=== PATIENT | female | born 1975 | race Caucasian/White ===

== ENCOUNTER 2016-10-28 02:30 | Emergency (ER) | payer OTHER ==
[~2016-10-28] VITALS: Ht 162.6 cm; Wt 95.3 kg
[~2016-10-28 02:30] MED LIST: LISI40TA PO; QUET300T5 PO; TIZA4CAP2 PO; WARF4TAB PO
[2016-10-28] MEDS ORDERED: ZOFRAN ODT ONE (02:58)
[2016-10-28] MEDS ORDERED: MORPHINE SULFATE ONE (02:58)
[2016-10-28] MEDS ORDERED: MORPHINE SULFATE IM STA (02:59)
[2016-10-28] MEDS ORDERED: ZOFRAN ODT SL STA (02:59)
--- NOTE | 2016-10-28 03:03 | ER.PDOC ---
General Chief Complaint: Abdomen Pain Stated Complaint: ABD PAIN,N/V/D Time seen by MD: 03:02 Source: patient Exam Limitations: no limitations History of Present Illness Initial Comments Epigastric pain Timing/Duration: 24 hours Severity/Quality: moderate Radiation: no radiation Associated Symptoms: nausea/vomiting Exacerbated by: nothing Relieved By: nothing Allergies: Coded Allergies: Sulfa (Sulfonamide Antibiotics) (Unverified Allergy, Unknown, 09/21/14) acetaminophen (Unverified Allergy, Unknown, 09/21/14) chlorpromazine (Unverified Allergy, Unknown, 09/21/14) dicyclomine (Unverified Allergy, Unknown, 09/21/14) doxycycline (Unverified Allergy, Unknown, 09/21/14) fentanyl (Unverified Allergy, Unknown, 09/21/14) haloperidol (Unverified Allergy, Unknown, 09/21/14) ketorolac (Unverified Allergy, Unknown, 09/21/14) meperidine (Unverified Allergy, Unknown, 09/21/14) nalbuphine (Unverified Allergy, Unknown, 09/21/14) oxycodone (Unverified Allergy, Unknown, 09/21/14) prochlorperazine (Unverified Allergy, Unknown, 09/21/14) sumatriptan (Unverified Allergy, Unknown, 09/21/14) Home Meds Reported Medications Tizanidine Hcl (ZANAFLEX) 4 Mg Capsule, 1 CAP PO HS, #30 CAP 09/27/14 Quetiapine Fumarate (SEROQUEL) 300 Mg Tablet, 1 TAB PO HS, #30 TAB 1 Refill 09/27/14 Warfarin Sodium (COUMADIN) 4 Mg Tablet, 1 TAB PO DAILY, #30 TAB 3 Refills 09/27/14 Lisinopril (LISINOPRIL) 40 Mg Tablet, 1 TAB PO DAILY, #30 TAB 5 Refills 09/27/14 Vital Signs First Vital Signs Date Time Temp Pulse Resp B/P (MAP) Pulse Ox O2 Delivery O2 Flow Rate FiO2 10/28/16 02:41 98.0 78 16 97 Last Vital Signs Date Time Temp Pulse Resp B/P (MAP) Pulse Ox O2 Delivery O2 Flow Rate FiO2 10/28/16 02:44 98.0 10/28/16 02:41 78 16 97 Past Medical History Medical History: hypertension Surgical History: appendectomy, cholecystectomy, hysterectomy, tonsillectomy LMP (females 10-50): hysterectomy Social History Smoking: non-smoker Alcohol Use: none Drug Use: none Constitutional: no symptoms reported Respiratory: no symptoms reported Cardiovascular: no symptoms reported Gastrointestinal: see HPI Genitourinary: no symptoms reported Musculoskeletal: no symptoms reported All Other Systems: Reviewed and Negative Physical Exam General Appearance: No Apparent Distress, WD/WN Neck: Non-Tender, Full Range of Motion, Supple, Normal Inspection Respiratory: chest non-tender, lungs clear, normal breath sounds, no respiratory distress, no accessory muscle use Cardiovascular: Normal Peripheral Pulses, Regular Rate, Rhythm, No Edema, No Gallop, No JVD, No Murmur Gastrointestinal: Normal Bowel Sounds, No Organomegaly, No Pulsatile Mass, Tenderness (epigastric) Back: Normal Inspection, No CVA Tenderness, No Vertebral Tenderness Extremities: Normal Range of Motion, Non-Tender, Normal Inspection, No Pedal Edema, No Calf Tenderness, Normal Capillary Refill, Pelvis Stable Neurologic/Psychiatric: senior ios developer II-XII NML as Tested, No Motor/Sensory Deficits, Alert, Normal Mood/Affect, Oriented x 3 Skin: Normal Color, Warm/Dry EKG/XRAY/CT/US CT Comments: Nothing acute on CT abdomen/pelvis Course Blood Pressure Systolic: 167 Blood Pressure Diastolic: 99 Blood Pressure Mean: 121 Departure Time of Disposition: 04:21 Disposition: 01 HOME, SELF-CARE Impression: Primary Impression: Nonspecific abdominal pain Condition: Stable Referrals: PCP,UNKNOWN (PCP) PRIMARY CARE PROVIDER Additional Instructions: F/U with your PCP in 1-2 days CARYN PICHARDO MD Oct 28, 2016 03:03
--- NOTE | 2016-10-28 03:05 | NUR ---
URINE COLLECTED AND TAKEN TO LAB
--- NOTE | 2016-10-28 03:06 | NUR ---
LAB IN WITH PATIENT FOR LAB DRAW
--- NOTE | 2016-10-28 03:10 | NUR ---
CT CALLED CALLED [facility] FOR CT
[2016-10-28 03:20] LABS: BASOPHIL % 0.4 % (0.0-0.2); EOSINOPHIL % 0.8 % (0.0-5.0); HEMATOCRIT 34.5 % (36.0-46.0); HEMOGLOBIN 11.4 g/dL (12.0-15.0); LYMPHOCYTES # 1.5 10^3/uL (1.0-4.8); LYMPHOCYTES % 29.1 % (24.0-44.0); MEAN CELL HGB 29.8 pg (26-34); MEAN CORP VOLUME 90.3 fL (78-100); MEAN PLATELET VOLUME 10.1 fL (7.8-11.0); MONOCYTES # 0.4 10^3/uL (0.3-0.8); NEUTROPHIL # 3.1 10^3/uL (1.8-7.7); NEUTROPHILS % 62.5 % (41.0-85.0); RED CELL DISTRIBUTION WIDTH 14.2 % (11.5-14.5)
[2016-10-28 03:21] LABS: APPEARANCE,URINE CLEAR (CLEAR); BILIRUBIN,URINE NEGATIVE (NEGATIVE); UA COLOR YELLOW (YELLOW); UROBILINOGEN,URINE NORMAL (NEGATIVE)
[2016-10-28 03:37] LABS: CALCIUM 8.8 mg/dL (8.4-10.5)
--- NOTE | 2016-10-28 04:11 | DIREP ---
PROCEDURE:CT ABDOMEN/PELVIS W/O CONTRAST COMPARISON:[facility], CT, CT ABD/PELVIS W/O, 10/10/2016, 10:37 PM. INDICATIONS:Epigastric pain TECHNIQUE: Axial images were obtained through the abdomen and pelvis without the administration of IV contrast. Oral contrast was not administered. The examination is supplemented with sagittal and coronal reconstructions. FINDINGS: LOWER CHEST: The lung bases appear clear of focal consolidation. No evidence of pleural effusion. Multiple superficial varicose veins. LIVER: A focal lesion is not detected. BILIARY: Cholecystectomy. PANCREAS: No lesion, inflammatory changes, fluid collection, ductal dilatation, or atrophy. SPLEEN: No enlargement. No focal lesion. KIDNEYS: No mass. No calcification. No obstruction. ADRENALS: No mass or enlargement. AORTA/VASCULAR: No aneurysm or dissection. RETROPERITONEUM: No mass or adenopathy. BOWEL/MESENTERY: Limitations due to unopacified bowel. The appendix is not visualized. There is no pericecal inflammation or fluid collection to suggest appendicitis. No small bowel dilatation or bowel wall thickening. Sigmoid diverticula. No mesenteric inflammatory changes. There is no free air or free fluid. ABDOMINAL WALL: No mass or hernia. PELVIS: No visible mass. No adenopathy. No visible focal bladder wall thickening or intraluminal calculus. BONES: No bony lesion or acute fracture. OTHER: Multiple injection granulomas in the buttocks. CONCLUSION: 1. An acute intra-abdominal abnormality is not demonstrated. Dictated by: Hao Veliz M.D. on 10/28/2016 at 04:06 AM
[2016-10-28 04:24] VITALS: BP 160/89
== END 2016-10-28 04:25 | disposition home or self-care (01) ==
LOC: ER 02:30
DX: R10.13 Epigastric pain (principal); R11.2 Nausea with vomiting, unspecified; I10 Essential (primary) hypertension; Z90.49 Acquired absence of other specified parts of digestive tract; Z79.899 Other long term (current) drug therapy; Z88.2 Allergy status to sulfonamides; Z88.8 Allergy status to other drugs, medicaments and biological substances; Z88.5 Allergy status to narcotic agent
CPT/HCPCS: 36415; 74176; 80053; 81002; 83690; 85025; 85610; 85730; 86677; 93005; 96372; 99285; J2270; Q0162